=== PATIENT | female | born 1950 | race Caucasian/White ===

== ENCOUNTER 2022-06-28 14:30 | Inpatient (IN) ==
[2022-06-28] MEDS ORDERED: Prochlorperazine 10 MG/2 ML VIAL IVP STA (19:57)
[2022-06-28] MEDS ORDERED: 0.9 % Sodium Chloride 1,000 ML IV ONE (19:57)
[2022-06-28 20:49] LABS: Basophils % 0.3 %; Eosinophils # 0.1 K/mcL (0.0-0.6); Eosinophils % 1.3 %; Hematocrit 34.5 % (35.3-44.9); Immature Granulocytes % 0.3 % (0-4); Lymphocytes # 0.8 K/mcL (0.6-4.6); Lymphocytes % 11.7 %; Mean Corpuscular HGB Conc 31.9 g/dL (31.6-35.5); Mean Corpuscular Hemoglobin 27.2 pg (28.0-33.3); Mean Corpuscular Volume 85.4 fL (83.0-100.0); Mean Platelet Volume 9.8 fL (9.4-12.4); Monocytes # 0.6 K/mcL (0.0-1.3); Monocytes % 8.1 %; Neutrophils # 5.5 K/mcL (1.6-8.9); Platelet Count 152 K/mcL (140-400); Red Blood Count 4.04 M/mcL (3.82-4.97); Red Cell Distribution Width 16.5 % (11.5-14.5); Segmented Neutrophils % 78.3 %
[2022-06-28 21:12] LABS: Alanine Aminotransferase 8 Units/L (7-52); Albumin 3.7 g/dL (3.5-5.7); Albumin/Globulin Ratio 1.2 (1.1-2.2); Alkaline Phosphatase 139 Units/L (34-104); Amylase 18 Units/L (29-103); Aspartate Amino Transferase 18 Units/L (13-39); BUN/Creatinine Ratio 14 (6-26); Bilirubin,Direct 0.3 mg/dL (0.0-0.2); Bilirubin,Indirect 0.5 mg/dL (0.0-1.0); Bilirubin,Total 0.8 mg/dL (0.3-1.0); Blood Urea Nitrogen 9 mg/dL (8-23); Carbon Dioxide 20 mEq/L (23-29); Chloride 111 mEq/L (98-107); Globulin 3.2 g/dL (2.4-3.5); Glucose 82 mg/dL (70-105); Lipase 10 Units/L (11-82); Magnesium 2.1 mg/dL (1.6-2.6); Osmolality,Calculated 288 (280-300); Potassium 3.6 mEq/L (3.5-5.1); Sodium 140 mEq/L (136-145); Total Protein 6.9 g/dL (6.4-8.9); Troponin I < 0.03 ng/mL (< 0.04)
[2022-06-28 21:16] LABS: Bilirubin,Urine Negative (Negative); Blood,Urine Negative (Negative); Clarity,Urine Clear (Clear); Color,Urine Yellow (Yellow); Glucose,Urine (UA) Normal (Normal); Ketones,Urine 20 mg/dL (Negative); Leukocyte Esterase,Urine Negative (Negative); Nitrite,Urine Negative (Negative); PH,Urine 6.5 pH Units (5.0-8.0); Protein,Urine Trace mg/dL (Neg-Trace); Specific Gravity,Urine 1.017 (1.010-1.025)
[2022-06-28 21:47] LABS: Adenovirus Not Detected (Not Detect); Bordetella Pertussis Not Detected (Not Detect); Chlamydophila pneumoniae Not Detected (Not Detect); Coronavirus 229E Not Detected (Not Detect); Coronavirus HKU1 Not Detected (Not Detect); Coronavirus NL63 Not Detected (Not Detect); Coronavirus OC43 Not Detected (Not Detect); Human Metapneumovirus Not Detected (Not Detect); Human Rhinovirus/Enterovirus Not Detected (Not Detect); Influenza A Subtype 2009 H1 Not Detected (Not Detect); Influenza B Not Detected (Not Detect); Mycoplasma pneumoniae Not Detected (Not Detect); Parainfluenza Virus 1 Not Detected (Not Detect); Parainfluenza Virus 2 Not Detected (Not Detect); Parainfluenza Virus 3 Not Detected (Not Detect); Parainfluenza Virus 4 Not Detected (Not Detect); Respiratory Syncytial Virus Not Detected (Not Detect); SARS-CoV-2 Not Detected (Not Detect)
[2022-06-28] MEDS ORDERED: Melatonin 3 MG TABLET PO PRN (22:23)
[2022-06-28] MEDS ORDERED: Acetaminophen 325 MG TABLET PO PRN (22:23)
[2022-06-28] MEDS ORDERED: Naloxone 0.4 MG/ML INJ IVP PRN (22:23)
[2022-06-28] MEDS: Ondansetron 4 MG/2 ML VIAL IVP PRN (23:06)
[2022-06-29] MEDS ORDERED: Azithromycin 500 MG in 0.9 % Sodium Chloride 250 ML IVPB SCH (01:00)
[2022-06-29] MEDS: 0.9 % Sodium Chloride 1,000 ML IVC SCH ×4 (01:32→22:08)
[2022-06-29] MEDS: *HR* Promethazine 25 MG/ML VIAL IM PRN (01:36)
[2022-06-29] MEDS ORDERED: *HR* Labetalol 20 MG/4 ML SYRINGE IVP PRN (02:57)
[2022-06-29 04:03] LABS: Basophils % 0.4 %; Eosinophils # 0.1 K/mcL (0.0-0.6); Eosinophils % 1.3 %; Hematocrit 33.5 % (35.3-44.9); Hemoglobin 10.7 g/dL (11.5-15.4); Immature Granulocytes % 0.3 % (0-4); Lymphocytes # 0.7 K/mcL (0.6-4.6); Lymphocytes % 9.6 %; Mean Corpuscular HGB Conc 31.9 g/dL (31.6-35.5); Mean Corpuscular Hemoglobin 27.3 pg (28.0-33.3); Mean Corpuscular Volume 85.5 fL (83.0-100.0); Mean Platelet Volume 9.8 fL (9.4-12.4); Monocytes # 0.6 K/mcL (0.0-1.3); Monocytes % 8.7 %; Neutrophils # 5.6 K/mcL (1.6-8.9); Platelet Count 152 K/mcL (140-400); Red Blood Count 3.92 M/mcL (3.82-4.97); Red Cell Distribution Width 16.6 % (11.5-14.5); Segmented Neutrophils % 79.7 %
[2022-06-29 04:09] LABS: INR 1.8; Prothrombin Time 20.4 Seconds (9.4-12.1)
[2022-06-29 04:26] LABS: Alanine Aminotransferase 7 Units/L (7-52); Albumin 3.4 g/dL (3.5-5.7); Albumin/Globulin Ratio 1.1 (1.1-2.2); Alkaline Phosphatase 128 Units/L (34-104); Aspartate Amino Transferase 17 Units/L (13-39); BUN/Creatinine Ratio 14 (6-26); Bilirubin,Total 0.8 mg/dL (0.3-1.0); Blood Urea Nitrogen 9 mg/dL (8-23); C-Reactive Protein 31 mg/L (Less than 10); Calcium 8.6 mg/dL (8.6-10.3); Carbon Dioxide 19 mEq/L (23-29); Chloride 113 mEq/L (98-107); Chol/HDL Ratio 5.1 (0-4.9); Cholesterol 149 mg/dL (< 200); Glucose 81 mg/dL (70-105); HDL Cholesterol 29 mg/dL (40-59); LDL Cholesterol,Calculated 89 mg/dL (< 100); Magnesium 1.9 mg/dL (1.6-2.6); Osmolality,Calculated 294 (280-300); Potassium 3.3 mEq/L (3.5-5.1); Sodium 143 mEq/L (136-145); Total Protein 6.4 g/dL (6.4-8.9); Triglycerides 156 mg/dL (< 150)
[2022-06-29 05:46] LABS: Adenovirus F 40/41 PCR Not detected (Not detect); Astrovirus PCR Not detected (Not detect); C.difficile Toxin A/B Gene PCR Not detected (Not detect); Campylobacter by PCR Not detected (Not detect); Cryptosporidium by PCR Not detected (Not detect); Cyclospora cayetanensis PCR Not detected (Not detect); Entamoeba histolytica PCR Not detected (Not detect); Enteroaggregative E.coli(EAEC) Not detected (Not detect); Enteropathogenic E.coli(EPEC) Not detected (Not detect); Enterotoxigenic E.coli (ETEC) Not detected (Not detect); Giardia lamblia PCR Not detected (Not detect); Norovirus GI/GII PCR Not detected (Not detect); Plesiomonas shigelloides PCR Not detected (Not detect); Rotavirus A PCR Not detected (Not detect); Salmonella PCR Not detected (Not detect); Sapovirus PCR Not detected (Not detect); Shig/EnteroinvasiveE coli EIEC Not detected (Not detect); Shigalike tox-prod E coli STEC Not detected (Not detect); Vibrio PCR Not detected (Not detect); Vibrio cholerae PCR Not detected (Not detect); Yersinia enterocolitica PCR Not detected (Not detect)
[2022-06-29] MEDS: Piperacillin/Tazobactam 3.375 GM in 0.9 % Sodium Chloride Mini Bag 100 ML IVPB SCH ×4 (06:03→22:08)
[2022-06-29] MEDS: *HR* Enoxaparin 40 MG/0.4 ML SYRINGE SQ SCH (06:03)
[2022-06-29] MEDS: Ondansetron 4 MG/2 ML VIAL IVP PRN (10:10)
[2022-06-29] MEDS: *HR* HYDROcodone/Acet 5/325 mg TABLET PO PRN (10:13)
[2022-06-29] MEDS ORDERED: Ipratropium/Albuterol Neb 3 ML IH PRN (14:01)
[2022-06-29] MEDS: Gabapentin 400 MG CAPSULE PO SCH ×2 (15:45→20:43)
[2022-06-29] MEDS: Scopolamine Patch 1.5 MG PATCH.TD72 TD SCH (15:47)
[2022-06-29] MEDS: amLODIPine 5 MG TABLET PO SCH (16:24)
[2022-06-29] MEDS: QUEtiapine Fumarate 25 MG TABLET PO SCH (20:44)
[2022-06-30 02:39] LABS: BUN/Creatinine Ratio 14 (6-26); Blood Urea Nitrogen 9 mg/dL (8-23); Calcium 8.1 mg/dL (8.6-10.3); Carbon Dioxide 19 mEq/L (23-29); Chloride 116 mEq/L (98-107); Glucose 81 mg/dL (70-105); Osmolality,Calculated 290 (280-300); Potassium 3.3 mEq/L (3.5-5.1); Sodium 141 mEq/L (136-145)
[2022-06-30] MEDS: Azithromycin 500 MG in 0.9 % Sodium Chloride 250 ML IVPB SCH (04:42)
[2022-06-30] MEDS: *HR* Enoxaparin 40 MG/0.4 ML SYRINGE SQ SCH (05:21)
[2022-06-30] MEDS: Ondansetron 4 MG/2 ML VIAL IVP PRN ×2 (05:24→17:06)
[2022-06-30] MEDS: Piperacillin/Tazobactam 3.375 GM in 0.9 % Sodium Chloride Mini Bag 100 ML IVPB SCH ×2 (05:28→13:43)
[2022-06-30] MEDS: Levothyroxine 25 MCG TABLET PO SCH (06:03)
[2022-06-30] MEDS: Gabapentin 400 MG CAPSULE PO SCH ×3 (09:29→23:42)
[2022-06-30] MEDS: allopurinoL 300 MG TABLET PO SCH (09:29)
[2022-06-30] MEDS: amLODIPine 5 MG TABLET PO SCH (09:30)
[2022-06-30 09:53] LABS: Triiodothyronine (T3) Free 2.63 pg/mL (2.50-3.90)
[2022-06-30] MEDS: 0.9 % Sodium Chloride 1,000 ML IVC SCH (17:10)
[2022-06-30] MEDS: *HR* Promethazine 25 MG/ML VIAL IM PRN (19:58)
[2022-06-30] MEDS: QUEtiapine Fumarate 25 MG TABLET PO SCH (23:42)
[2022-07-01] MEDS: Piperacillin/Tazobactam 3.375 GM in 0.9 % Sodium Chloride Mini Bag 100 ML IVPB SCH ×4 (00:25→21:30)
[2022-07-01 03:15] LABS: Calcium 8.7 mg/dL (8.6-10.3); Potassium 3.6 mEq/L (3.5-5.1)
[2022-07-01] MEDS: Azithromycin 500 MG in 0.9 % Sodium Chloride 250 ML IVPB SCH (05:48)
[2022-07-01] MEDS: *HR* Enoxaparin 40 MG/0.4 ML SYRINGE SQ SCH (05:48)
[2022-07-01] MEDS: Ondansetron 4 MG/2 ML VIAL IVP PRN ×2 (05:58→17:08)
[2022-07-01] MEDS: amLODIPine 5 MG TABLET PO SCH (07:48)
[2022-07-01] MEDS: allopurinoL 300 MG TABLET PO SCH (07:48)
[2022-07-01] MEDS: Gabapentin 400 MG CAPSULE PO SCH ×3 (07:48→21:29)
[2022-07-01] MEDS: Levothyroxine 25 MCG TABLET PO SCH (07:49)
[2022-07-01] MEDS: QUEtiapine Fumarate 25 MG TABLET PO SCH (21:29)
[2022-07-02] MEDS: *HR* Promethazine 25 MG/ML VIAL IM PRN (01:48)
[2022-07-02] MEDS: Azithromycin 500 MG in 0.9 % Sodium Chloride 250 ML IVPB SCH (06:12)
[2022-07-02] MEDS: *HR* Enoxaparin 40 MG/0.4 ML SYRINGE SQ SCH (06:12)
[2022-07-02] MEDS: Piperacillin/Tazobactam 3.375 GM in 0.9 % Sodium Chloride Mini Bag 100 ML IVPB SCH ×3 (07:38→23:30)
[2022-07-02] MEDS: allopurinoL 300 MG TABLET PO SCH (07:39)
[2022-07-02] MEDS: Levothyroxine 25 MCG TABLET PO SCH (07:39)
[2022-07-02] MEDS: amLODIPine 5 MG TABLET PO SCH (07:39)
[2022-07-02] MEDS: Ondansetron 4 MG/2 ML VIAL IVP PRN (07:39)
[2022-07-02] MEDS: Gabapentin 400 MG CAPSULE PO SCH ×3 (07:39→23:30)
[2022-07-02] MEDS: Scopolamine Patch 1.5 MG PATCH.TD72 TD SCH (13:21)
[2022-07-02] MEDS: Torsemide 20 MG TABLET PO SCH (17:13)
[2022-07-02] MEDS: QUEtiapine Fumarate 25 MG TABLET PO SCH (23:30)
[2022-07-02] MEDS: *HR* HYDROcodone/Acet 5/325 mg TABLET PO PRN (23:30)
[2022-07-03] MEDS: Azithromycin 500 MG in 0.9 % Sodium Chloride 250 ML IVPB SCH (05:30)
[2022-07-03] MEDS: Piperacillin/Tazobactam 3.375 GM in 0.9 % Sodium Chloride Mini Bag 100 ML IVPB SCH ×2 (06:58→14:03)
[2022-07-03] MEDS: *HR* Enoxaparin 40 MG/0.4 ML SYRINGE SQ SCH (06:58)
[2022-07-03] MEDS: Levothyroxine 25 MCG TABLET PO SCH (06:59)
[2022-07-03] MEDS: Torsemide 20 MG TABLET PO SCH (06:59)
[2022-07-03] MEDS: *HR* HYDROcodone/Acet 5/325 mg TABLET PO PRN (07:53)
[2022-07-03] MEDS: allopurinoL 300 MG TABLET PO SCH (07:53)
[2022-07-03] MEDS: Gabapentin 400 MG CAPSULE PO SCH ×2 (07:53→14:03)
[2022-07-03] MEDS: amLODIPine 5 MG TABLET PO SCH (07:53)
[2022-07-03] MEDS ORDERED: Pantoprazole 40 MG VIAL IVP SCH (08:00)
[2022-07-03 11:07] LABS: Hematocrit 34.5 % (35.3-44.9); Mean Corpuscular HGB Conc 31.9 g/dL (31.6-35.5); Mean Corpuscular Hemoglobin 27.4 pg (28.0-33.3); Mean Platelet Volume 10.1 fL (9.4-12.4); Platelet Count 167 K/mcL (140-400); Red Blood Count 4.01 M/mcL (3.82-4.97); White Blood Count 5.8 K/mcL (4.3-11.1)
[2022-07-03 11:14] LABS: INR 1.6; Prothrombin Time 17.9 Seconds (9.4-12.1)
[2022-07-03 11:29] LABS: Albumin 3.5 g/dL (3.5-5.7); Albumin/Globulin Ratio 1.2 (1.1-2.2); Bilirubin,Total 0.7 mg/dL (0.3-1.0); Calcium 8.5 mg/dL (8.6-10.3); Globulin 2.9 g/dL (2.4-3.5); Potassium 3.1 mEq/L (3.5-5.1); Total Protein 6.4 g/dL (6.4-8.9)
[2022-07-03 15:21] VITALS: BP 132/79; PULSE 76; TEMP 97.7; O2SAT 94
== END 2022-07-03 18:13 | disposition home health service (06) | DRG 391 ==
LOC: 3ANU 14:30 → EMEROOARM 14:30 → SUATTDRO 22:21 → 3ANU 22:47
PROVIDERS: ADMIT Internal Medicine; ATTEND Internal Medicine